=== PATIENT | male | born 1945 | race Caucasian/White ===

== ENCOUNTER → 2017-11-17 | Outpatient (CLI) | payer MEDICARE ==
--- NOTE | 2017-11-18 20:30 | RADIOLOGY REPORT (SQ) ---
EXAM DESCRIPTION: MRI LT UPPER JOINT WITHOUT COMPLETED DATE/TIME: 11/17/2017 4:38 pm REASON FOR STUDY: M75.122 COMPLETE ROTATR-CUFF TEAR/RUPTR OF LEFT SHOULDER, NOT TRAUMA M75.122 COMP LETE ROTATR-CUFF TEAR/RUPTR OF LEFT SHOULDER, NO COMPARISON: None. TECHNIQUE: Left shoulder images acquired and stored on PACS. Multiplanar imaging to include fat sens itive sequences such as T1, water sensitive sequences such as FST2/STIR, cartilage sensitive sequence s such as FSPD/gradient-echo sequences. LIMITATIONS: None. FINDINGS: BONE MARROW AND CORTEX: Edema in the greater tuberosity. Likely related to contusion. Ax ial gradient sequence suggests probable mild periosteal new bone overlying this area. JOINT OR BURSAL EFFUSION: Trace joint and bursal fluid. GLENO-HUMERAL ARTICULATION: Normal articulation. No subluxation. No cystic change. No osteophytes or cartilage loss. ACROMION AND AC JOINT: No posttraumatic widening. Mild degenerative overgrowth. Preserved subacromi al space. ROTATOR CUFF AND INTERVAL: Thickening and tendinosis. Mild bursal surface fraying. Possible mild ar ticular surface irregularity as well. No full-thickness breech, however. LABRUM AND BICEPS LABRAL COMPLEX: Suspect low grade fraying. Biceps tendon intact. REMAINDER OF LABRUM AND IGHL : Diffuse abnormal appearance throughout the anterior inferior labrum. Consistent with tear. PERIARTICULAR AND ADJACENT SOFT TISSUES: No masses or abnormal nodes. OTHER: No other significant finding. IMPRESSION: 1. Contusion in the greater tuberosity. 2. Cuff tendinosis and suspected partial tear. No full-thickness breech. 3. Labral findings as above. Suspect mild superior labral fraying. Ant erior inferior labral tear. TECHNICAL DOCUMENTATION: JOB ID: [id number] [employer]- All Rights Reserved Reading location - IP/workstation name: [email or web address]
== END ==
LOC: RAD 18:08
PROVIDERS: ATTEND Orthopaedic Surgery Sports Medicine
DX: M75.122 Complete rotator cuff tear or rupture of left shoulder, not specified as traumatic (principal)